=== PATIENT | female | born 1945 | race Caucasian/White ===

== ENCOUNTER 2016-04-27 09:05 | Observation (INO) | payer MEDICARE, OTHER ==
--- NOTE | ~2016-04-27 | OP ---
Record Of Operation [facility] [address] [place]. [address] NAME: JOSE FUNEZ : 45 STATUS : ADM IN PAT#: [id number] AGE: 70 ADM/REG DATE : 04/27/16 MR#: [id number] REPORT SERV DATE: 04/27/16 DICTATED BY: BOOKER PIERRE DATE: 04/27/16 REPORT STATUS : Draft TRANSCRIBED BY: MODL DATE: 04/27/16 DATE OF PROCEDURE: 04/27/2016 PREOPERATIVE DIAGNOSES: 1. Right inguinal hernia. 2. Ventral/incisional hernia. POSTOPERATIVE DIAGNOSES: 1. Right inguinal hernia. 2. Ventral/incisional hernia with associated left inguinal hernia. PROCEDURE: 1. Laparoscopic reduction and mesh patch repair of bilateral inguinal hernia. 2. Left combined laparoscopic and open repair of ventral/incisional hernia. SURGEON: Booker Pierre M.D. DESCRIPTION OF OPERATIVE PROCEDURE: The patient was brought to the operating suite, placed in the supine position, underwent satisfactory general endotracheal anesthesia without incident. Following this, the skin of the abdomen was scrubbed, prepped, and draped in usual sterile fashion. 0.5% Marcaine with epinephrine was utilized as supplemental local anesthesia at all intended operative sites. Initially, a curvilinear infraumbilical incision was performed dissecting through the skin and subcutaneous tissue. Inferolateral retraction of the right exposed the medial aspect of the right anterior rectus sheath, this itself was incised longitudinally and the rectus muscle itself was identified and retracted laterally exposing the left posterior rectus sheath. A preperitoneal dissection balloon was inserted posterior to the left rectus sheath to the level of pubic tubercle, and it was insufflated under direct camera visualization creating a preperitoneal dissection plane bilaterally. This balloon was then removed, replaced with a structural balloon, and CO2 was insufflated into the preperitoneal space for pressures of 15 mmHg throughout the case. Two additional 5-mm trocars were established in the infraumbilical midline under direct visualization. Completion of the preperitoneal dissection was performed bilaterally revealing bilateral indirect defects with the right greater than the left. Both the hernia sacs were identified and reduced from the internal ring, and then the round ligament underwent ligation between Weck 5-mm polymer clips and was divided. Any opening in the peritoneum was controlled with again Weck 5-mm polymer clips. The pubic tubercle, Hesselbach's triangle, and inferior epigastric vessels were skeletonized. Two separately placed pieces of Bard 3DMax polypropylene mesh, size large, oriented left and right, were utilized, they were placed in local anesthesia, rolled up, and then placed in the preperitoneal space. They were unrolled over the inguinal canals bilaterally covering Record Of Operation [facility] [id number] [place]. [address] NAME: JOSE FUNEZ : 45 STATUS : ADM IN PAT#: [id number] AGE: 70 ADM/REG DATE : 04/27/16 MR#: [id number] REPORT SERV DATE: 04/27/16 DICTATED BY: BOOKER PIERRE DATE: 04/27/16 REPORT STATUS : Draft TRANSCRIBED BY: VALE DATE: 04/27/16 the Hesselbach's triangle, the inferior epigastric vessels, and the internal rings. Multiple firings of the SorbaFix helical tacker were utilized to plicate the mesh in position. This repair having being achieved, trocars were removed, CO2 was allowed to egress from peritoneal cavity. Attention was then turned to the umbilical/incisional defect. The umbilical skin was elevated off the defect and dissecting through the skin and subcutaneous tissue excising the hernia sac revealed about a 5- to 6-cm oval defect of an incisional nature. This defect was cleaned of overriding fibrofatty tissue and closed with interrupted vertical mattress sutures in a "[id number]" fashion using 0 Ethibond, these were tied down. CO2 was insufflated into the peritoneal cavity and 3 trocars were placed in the right lateral abdomen; a 10-mm one in the right subcostal area and two 5-mm ones in the left mid abdomen and left lower quadrant. Visualization of the previous open repair with measurements confirmed that a 10 x [address] patch would be satisfactory. Accordingly, the patch was prepared on the back table by placing stay sutures at the four cardinal points of the compass around the periphery of the patch using 0 Ethibond. Then, the patch was rolled up and placed in the peritoneal cavity, it was unrolled, and the stay sutures were retrieved transfascially though the skin at the four cardinal points of the compass plicating the patch to the back of the midline fascia. These sutures were tied down and then multiple firings of the secure straps were utilized to completely secure the patch to the back of the rectus sheath bilaterally covering the defects in the midline. Hemostasis was assured. CO2 was allowed to egress from peritoneal cavity after removal of the trocars. The left subcostal trocar site was closed at the muscle level with 0 Vicryl, subcutaneous tissue closed at all sites with interrupted 4-0 Vicryl running subcuticular stitch and 4-0 Vicryl to the skin after trimming of redundant umbilical skin. Dermabond and skin adhesive placed. The patient tolerated the procedure well and was returned to PACU in stable condition. At the termination of the procedure, sponge, needle, lap, and instrument counts were correct x3. ESTIMATED BLOOD LOSS: 15 to 20 mL. WR/MODMicha Booker Pierre M.D. / [id number] Record Of [address] [address] NAME: JOSE FUNEZ : 45 STATUS : ADM IN [facility]#: [id number] AGE: 70 ADM/REG DATE : 04/27/16 MR#: [id number] REPORT SERV DATE: 04/27/16 DICTATED BY: BOOKER PIERRE DATE: 04/27/16 REPORT STATUS : Draft TRANSCRIBED BY: MODMicha DATE: 04/27/16 CC: Booker Pierre M.D.
[~2016-04-27 09:05] MED LIST: COZAAR100 MG PO; JANUVIA100 MG PO; MICROZIDE PO; MOVE FREE ULTR1 EAC1 PO; MUCINEX600 MG PO; MULTIVIT/MIN PO; PCET PO; REG PO; Z-PAK PO; ZEGERID1 CAP PO
[2016-04-28 07:19] LABS: BASOPHILS 0 %; EOSINOPHILS 0 %; HEMATOCRIT 33.7 % (36.0-48.0); HEMOGLOBIN 11.6 g/dL (12.0-16.0); IMMATURE GRANULOCYTES 0.1 %; IMMATURE GRANULOCYTES ABSOLUTE 0.02 10/3/uL (0.0-0.11); LYMPHOCYTES 5.3 %; LYMPHOCYTES ABSOLUTE 0.71 10/3/uL (0.67-4.30); MANUAL DIFF NO %; MEAN CORPUS HGB CONC 34.4 g/dL (32.0-36.0); MEAN CORPUSCULAR HEMOGLOB 32.4 pg (26.0-34.0); MEAN CORPUSCULAR VOLUME 94.1 fL (80-100); MEAN PLATELET VOLUME 9.1 fL (9.2-13.0); MONOCYTES 5.1 %; MONOCYTES ABSOLUTE 0.69 10/3/uL (0.21-1.20); NEUTROPHILS 89.5 %; NEUTROPHILS ABSOLUTE 12.05 10/3/uL (2.02-8.40); PLATELET COUNT 265 10/3/uL (150-400); RBC DISTRIBUTION WIDTH 14.7 % (12.0-16.0); RED CELL COUNT 3.58 10/6/uL (4.0-5.6); WHITE BLOOD CELLS 13.5 10/3/uL (4.5-10.5)
[2016-04-28 07:29] LABS: CALCIUM, SERUM 8.1 MG/DL (8.5-10.4); CHLORIDE, SERUM 103 MMOL/L (96-112); POTASSIUM, SERUM 4.9 MMOL/L (3.5-5.3); SODIUM, SERUM 138 MMOL/L (135-148)
[2016-04-28 07:30] LABS: BUN (BLOOD UREA NITROGEN) 25 MG/DL (6-23); CO2 (CARBON DIOXIDE) 23 MMOL/L (24-34); CREATININE 2.31 MG/DL (0.55-1.02); GFR AFRICAN AMERICAN 24 ML/MIN (>=60); GFR NON AFRICAN AMERICAN 21 ML/MIN (>=60); GLUCOSE, SERUM 295 MG/DL (60-99)
[2016-04-28] MEDS ORDERED: NORCO1 TA1 PO (13:52)
== END 2016-04-28 14:38 | disposition home or self-care (01) ==
LOC: SDC/OF 09:05 → PACU 14:54 → 5SO 16:50
PROVIDERS: Specialist
PROC: 0YUA4JZ Supplement Bilateral Inguinal Region with Synthetic Substitute, Percutaneous Endoscopic Approach (ICD-10-PCS; principal; 2016-04-27 10:15)
PROC: 0WQF4ZZ Repair Abdominal Wall, Percutaneous Endoscopic Approach (ICD-10-PCS; 2016-04-27 10:15)
DX: K40.20 Bilateral inguinal hernia, without obstruction or gangrene, not specified as recurrent (principal); K43.2 Incisional hernia without obstruction or gangrene; E11.9 Type 2 diabetes mellitus without complications; K21.9 Gastro-esophageal reflux disease without esophagitis; I10 Essential (primary) hypertension; J18.9 Pneumonia, unspecified organism; J45.909 Unspecified asthma, uncomplicated; M19.90 Unspecified osteoarthritis, unspecified site; K44.9 Diaphragmatic hernia without obstruction or gangrene; Z90.710 Acquired absence of both cervix and uterus; Z87.891 Personal history of nicotine dependence; Z88.1 Allergy status to other antibiotic agents; Z88.8 Allergy status to other drugs, medicaments and biological substances; Z79.899 Other long term (current) drug therapy; Z90.49 Acquired absence of other specified parts of digestive tract; Z98.890 Other specified postprocedural states; Z90.721 Acquired absence of ovaries, unilateral
CPT/HCPCS: 80048; 80053; 82962; 85014; 85018; 85025; 87641; 94640; 96372; 96374; 96375; 96376; A9270-GY; C1713; C1726; C1727; C1781; G0378; J0690; J2250; J2270; J2405; J2710; J2795; J3010